=== PATIENT | male | born 1945 | race Caucasian/White ===

== ENCOUNTER 2017-07-27 01:12 | Inpatient (IN) ==
[2017-07-27] MEDS ORDERED: ASPIRIN PO STA (01:18)
[2017-07-27 01:46] LABS: INR 1.2; PROTIME 12.7 Seconds (9.2-11.7); PTT 34.5 Seconds (22.0-36.0)
[2017-07-27 01:48] LABS: CALCIUM 8.9 mg/dL (8.8-10.2); MAGNESIUM 1.3 mg/dL (1.5-2.7); POTASSIUM 4.3 mmol/L (3.5-5.1); TOTAL BILIRUBIN 1.36 mg/dL (0.20-1.00); TOTAL PROTEIN 6.2 g/dL (6.3-8.3)
[2017-07-27 02:04] LABS: BASO% 0.1 % (0.0-0.8); EOS# 0.11 X1000 (0.0-0.7); EOS% 0.6 % (0.0-10.0); HEMATOCRIT 45.4 % (42.0-52.0); HEMOGLOBIN 15.7 g/dL (14.0-18.0); IMM GRAN# 0.35 X1000 (0.0-0.04); IMM GRAN% 2.1 % (0.0-0.5); LYMPH# 1.29 X1000 (1.2-3.4); LYMPH% 7.6 % (20.5-51.1); MANUAL DIFF NEEDED? NO; MCHC 34.6 g/dL (33-37); MCV 89.5 FL (81-99); MONO# 1.26 X1000 (0.11-0.59); MONO% 7.4 % (1.7-9.3); MPV 11.9 FL (7.4-10.4); NEUT% 82.2 % (42.2-75.2); PLT 115 X1000 (130-400); RBC 5.07 XMIL (4.7-6.1)
[2017-07-27] MEDS ORDERED: LOVENOX 1 MG/KG SUBQ ONE (02:09)
[2017-07-27] MEDS ORDERED: LOVENOX SUBQ ONE (02:30)
[2017-07-27] MEDS ORDERED: ROCEPHIN 1 GM in NS 50 ML IV ONE (02:35)
[2017-07-27] MEDS ORDERED: TYLENOL PO PRN (03:57)
[2017-07-27 04:20] LABS: HEMOGLOBIN A1C 6.8 % (4.8-6.0)
[2017-07-27] MEDS: NS 1,000 ML IV SCH ×2 (04:23→14:11)
[2017-07-27] MEDS: ZITHROMAX 500 MG/NS 500 MG/250 ML IVPB IV SCH (04:40)
[2017-07-27] MEDS ORDERED: INSULIN PEN NEEDLES ONE (06:28)
[2017-07-27] MEDS: HUMALOG SUBQ SCH ×4 (06:31→20:36)
[2017-07-27] MEDS ORDERED: COZAAR PO SCH (09:00)
[2017-07-27] MEDS: ALBUTEROL NEB INH SCH ×4 (09:19→23:31)
[2017-07-27 09:40] LABS: ALLEN TEST YES; BE -3.2 mmoll (-3.0-3.0); BLOOD TYPE ARTERIAL; DRAW SITE L RADIAL; METHB 1.2 % (0.0-1.5); MODALITY ROOM AIR; O2(CT) 19.8 mL/dL (15.0-23.0); PCO2(98.6) 30 mmHg (35-45); PO2(98.6) 61 mmHg (60-100); SAMPLE BLOOD; SAO2 95.5 % (95.0-100.0); THB 15.3 g/dL (11.5-17.4); pH(98.6) 7.43 (7.35-7.45)
[2017-07-27] MEDS: ASPIRIN PO SCH (09:41)
[2017-07-27] MEDS: FOLIC ACID PO SCH (09:41)
[2017-07-27] MEDS: LIPITOR PO SCH (09:42)
[2017-07-27] MEDS: LOFIBRA PO SCH (09:42)
[2017-07-27] MEDS: PREDNISONE PO SCH (09:44)
[2017-07-27] MEDS: LOPRESSOR PO SCH (09:44)
[2017-07-27] MEDS: MIRALAX PO SCH (09:44)
[2017-07-27] MEDS: LANTUS SUBQ SCH ×2 (09:46→14:05)
[2017-07-27] MEDS ORDERED: MAGNESIUM SULFATE 4 GM/S.W.I. 4 GM/100 ML IVPB IV ONE (11:26)
[2017-07-27 18:46] LABS: BILIRUBIN URINE NEGATIVE (NEGATIVE); BLOOD URINE NEGATIVE (NEGATIVE); COLOR YELLOW; GLUCOSE URINE >1000 mg/dL (NEGATIVE); LEUKOCYTES URINE NEGATIVE (NEGATIVE); NITRITE URINE NEGATIVE (NEGATIVE); PH URINE 6.5; PROTEIN URINE NEGATIVE (NEGATIVE); SP GRAVITY URINE 1.011; TURBIDITY URINE CLEAR (CLEAR); URINE MICRO REVIEW NEEDED? NO; URINE SOURCE VOIDED; UROBILINOGEN URINE NORMAL (NORMAL)
[2017-07-27 18:47] LABS: UR EPITHELIAL CELLS <10 /HPF (<10); URINE BACTERIA NEGATIVE /HPF; URINE RBC <10 /HPF (<10); URINE WBC <10 /HPF (<10)
[2017-07-27 19:08] LABS: UR CREAT RANDOM 42.6 mg/dL (14-26)
[2017-07-28] MEDS: ZITHROMAX 500 MG/NS 500 MG/250 ML IVPB IV SCH (03:17)
[2017-07-28 03:54] LABS: HEMOGLOBIN 13.6 g/dL (14.0-18.0); IMM GRAN# 0.06 X1000 (0.0-0.04); IMM GRAN% 0.4 % (0.0-0.5); LYMPH# 1.09 X1000 (1.2-3.4); LYMPH% 8.1 % (20.5-51.1); MANUAL DIFF NEEDED? YES; MCH 31.1 PG (27-31); MCHC 34.9 g/dL (33-37); MONO# 0.65 X1000 (0.11-0.59); MONO% 4.8 % (1.7-9.3); MPV 11.5 FL (7.4-10.4); NEUT% 86.7 % (42.2-75.2); PLT 127 X1000 (130-400); RBC 4.38 XMIL (4.7-6.1)
[2017-07-28 03:59] LABS: BANDS 2 % (0-1); LYMPHS 5 % (21-51); MONO 5 % (1-9)
[2017-07-28 04:11] LABS: CALCIUM 8.4 mg/dL (8.8-10.2); POTASSIUM 4.1 mmol/L (3.5-5.1)
[2017-07-28] MEDS: LOVENOX SUBQ SCH (06:41)
[2017-07-28] MEDS: ROCEPHIN 1 GM in NS 50 ML IV SCH (06:41)
[2017-07-28] MEDS: HUMALOG SUBQ SCH ×5 (06:41→22:27)
[2017-07-28] MEDS: ASPIRIN PO SCH (08:18)
[2017-07-28] MEDS: LOFIBRA PO SCH (08:18)
[2017-07-28] MEDS: LIPITOR PO SCH (08:18)
[2017-07-28] MEDS: LANTUS SUBQ SCH (08:18)
[2017-07-28] MEDS: PREDNISONE PO SCH (08:18)
[2017-07-28] MEDS: LOPRESSOR PO SCH (08:18)
[2017-07-28] MEDS: FOLIC ACID PO SCH (08:18)
[2017-07-28] MEDS: MIRALAX PO SCH (08:19)
[2017-07-28] MEDS: ALBUTEROL NEB INH SCH ×3 (10:06→19:52)
[2017-07-29] MEDS: ZITHROMAX 500 MG/NS 500 MG/250 ML IVPB IV SCH (04:16)
[2017-07-29 05:13] LABS: BASO% 0.1 % (0.0-0.8); EOS# 0.01 X1000 (0.0-0.7); EOS% 0.1 % (0.0-10.0); HEMATOCRIT 38.2 % (42.0-52.0); HEMOGLOBIN 13.6 g/dL (14.0-18.0); IMM GRAN# 0.04 X1000 (0.0-0.04); IMM GRAN% 0.3 % (0.0-0.5); LYMPH# 1.58 X1000 (1.2-3.4); LYMPH% 13.1 % (20.5-51.1); MANUAL DIFF NEEDED? NO; MCH 31.7 PG (27-31); MCHC 35.6 g/dL (33-37); MONO# 0.49 X1000 (0.11-0.59); MONO% 4.1 % (1.7-9.3); MPV 11.6 FL (7.4-10.4); NEUT% 82.3 % (42.2-75.2); PLT 153 X1000 (130-400); RBC 4.29 XMIL (4.7-6.1)
[2017-07-29 05:45] LABS: CALCIUM 9.2 mg/dL (8.8-10.2); POTASSIUM 3.8 mmol/L (3.5-5.1)
[2017-07-29] MEDS: LOVENOX SUBQ SCH (06:46)
[2017-07-29] MEDS: ROCEPHIN 1 GM in NS 50 ML IV SCH (06:46)
[2017-07-29] MEDS: HUMALOG SUBQ SCH ×2 (06:52→11:34)
[2017-07-29 07:47] VITALS: BP 158/70
[2017-07-29] MEDS: LOPRESSOR PO SCH (08:49)
[2017-07-29] MEDS: LIPITOR PO SCH (08:49)
[2017-07-29] MEDS: ASPIRIN PO SCH (08:49)
[2017-07-29] MEDS: LANTUS SUBQ SCH (08:49)
[2017-07-29] MEDS: MIRALAX PO SCH ×2 (08:49→08:56)
[2017-07-29] MEDS: LOFIBRA PO SCH (08:49)
[2017-07-29] MEDS: PREDNISONE PO SCH (08:50)
[2017-07-29] MEDS: FOLIC ACID PO SCH (09:20)
[2017-07-29] MEDS: ALBUTEROL NEB INH SCH (10:02)
[2017-07-29] MEDS ORDERED: AUGMENTIN PO SCH (21:00)
[2017-07-30] MEDS ORDERED: ZITHROMAX PO SCH (09:00)
== END 2017-07-29 12:01 | disposition home or self-care (01) ==
LOC: ED 01:12 → 4N 03:30 → SUATTDRO 03:30
PROVIDERS: ATTEND Internal Medicine